=== PATIENT | female | born 1990 | race Caucasian/White ===

== ENCOUNTER 2016-09-15 12:25 | Inpatient (IN) | payer BC ==
[~2016-09-15] VITALS: Ht 157.5 cm; Wt 139.2 kg
[~2016-09-15 12:25] MED LIST: LABE100T16 PO; MTR600X PO; OXYC5TAB PO; PRENTAB26 PO; SERT-234 PO
[2016-09-15] MEDS ORDERED: SODIUM CHLORIDE 0.9% 1000ML 1,000 ML IV STA (12:44)
--- NOTE | 2016-09-15 13:09 | DIAGNOSTIC IMAGING REPORT ---
CHEST ONE VIEW PORTABLE CLINICAL HISTORY: Sepsis COMPARISON STUDY: 05/02/2013 FINDINGS: The cardiac and mediastinal contours are normal. There is no evidence of focal pulmonary consolidation. There is no evidence of failure. No pleural effusions are visualized.[ IMPRESSION: No active disease in the chest. Electronically signed by: Francisco Navarrete M.D. 09/15/2016 1:08 PM Dictated Date/Time: 09/15/2016 1:07 PM
[2016-09-15] MEDS ORDERED: NORE1TAB50 PO (13:27)
[2016-09-15 13:45] LABS: BASO % 0.2 %; BASO ABS # 0.03 K/uL (0-0.2); COMPLETE YES; EOS % 2.2 %; HEMATOCRIT 39.9 % (37-47); IG% 0.4 %; LYMPH % 8.2 %; LYMPH ABS # 1.49 K/uL (1.2-3.4); MEAN CORPUSCULAR HEMOGLOBIN 28.2 pg (25-34); MEAN CORPUSCULAR HGB CONC 32.8 g/dl (32-36); MEAN PLATELET VOLUME 10.8 fL (7.4-10.4); MONO % 6.6 %; NEUT % 82.4 %; PLATELET COUNT 211 K/uL (130-400); RED BLOOD COUNT 4.64 M/uL (4.2-5.4); WHITE BLOOD COUNT 18.14 K/uL (4.8-10.8)
[2016-09-15 14:01] LABS: PARTIAL THROMBOPLASTIN RATIO 1.2
[2016-09-15 14:06] LABS: BUN/CREATININE RATIO 15.8 (10-20); CALCIUM 8.7 mg/dl (8.5-10.1); CREATININE 0.58 mg/dl (0.60-1.20); POTASSIUM 3.9 mmol/L (3.5-5.1)
[2016-09-15 14:08] LABS: PREG INTERNAL NEGATIVE QC NEG CLEAR BACKGROUND; PREG INTERNAL POSITIVE QC POS CONTROL LINE
[2016-09-15] MEDS ORDERED: OPTIRAY 320 IV PRN (14:30)
--- NOTE | 2016-09-15 15:03 | DIAGNOSTIC IMAGING REPORT ---
CHEST CTA for PULMONARY ARTERIES CT DOSE: 717.09 mGy.cm HISTORY: Chest pain dyspnea TECHNIQUE: Multiaxial CT images of the chest were performed following the intravenous administration of contrast to evaluate the pulmonary arteries. Maximal intensity projection images were also obtained. COMPARISON STUDY: None. FINDINGS: There is a normal caliber thoracic aorta with no evidence for dissection. There is no evidence for pulmonary embolus. No pleural effusions. No pneumothorax. The liver and spleen are unremarkable. No mediastinal or hilar lymphadenopathy. The central airways are patent. The lungs are clear. IMPRESSION: No evidence for pulmonary embolus. Lungs are clear. Electronically signed by: Sterling Lin M.D. 09/15/2016 3:02 PM Dictated Date/Time: 09/15/2016 2:55 PM
[2016-09-15] MEDS ORDERED: ALBUT/IPRATROP 3MG/0.5MG NEB 3 ML VIAL INH STA (15:12)
[2016-09-15] MEDS ORDERED: ACETAMINOPHEN 325 MG TAB PO STA (15:12)
[2016-09-15] MEDS ORDERED: SODIUM CHLORIDE 0.9% 1000ML 1,000 ML IV SCH (16:10)
[2016-09-15] MEDS ORDERED: ACETAMINOPHEN 325 MG TAB PO PRN (16:15)
[2016-09-15] MEDS ORDERED: POLYETHYLENE (MIRALAX) 17 GM PACK PO PRN (16:15)
[2016-09-15] MEDS ORDERED: MoRPHine SULFATE 2 MG/ML CARP IV PRN (16:15)
[2016-09-15] MEDS ORDERED: ONDANSETRON INJ 2 MG/ML 2 ML VIAL IV PRN (16:15)
[2016-09-15 16:30] VITALS: BP 136/83; PULSE 116; TEMP 37.6; O2SAT 92; Ht 157.5 cm; Wt 139.2 kg
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
[2016-09-15] MEDS: LEVOFLOXACIN / D5W 750 MG in PREMIXED IN D5W 150 ML IV SCH (18:31)
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
[2016-09-15 19:17] VITALS: BP 145/84; PULSE 113; TEMP 36.9; O2SAT 94
[2016-09-15 20:05] VITALS: PULSE 110; O2SAT 94
[2016-09-15] MEDS: ALBUTEROL 0.5% NEB SOLN 2.5 MG/0.5 ML VIAL INH PRN (20:05)
[2016-09-15] MEDS: SERTRALINE HCL 50 MG TAB PO SCH (20:06)
[2016-09-15] MEDS: IBUPROFEN 600 MG TAB PO PRN (20:29)
[2016-09-15] MEDS ORDERED: GUAIFENESIN 600 MG TABCR PO SCH (21:00)
[2016-09-15] MEDS: NORETHINDRONE PO SCH (21:24)
[2016-09-15] MEDS ORDERED: SODIUM CHLORIDE 0.65% NA SOLN 45 ML (OCEAN) PRN (21:30)
[2016-09-15] MEDS ORDERED: NURSING VERBAL MED ORDER ONE (21:30)
[2016-09-16] VITALS (13 sets, daily range): BP systolic 133–167; BP diastolic 71–106; PULSE 82–104; TEMP 36.5–37.1; O2SAT 92–97
[2016-09-16] MEDS: ALBUTEROL 0.5% NEB SOLN 2.5 MG/0.5 ML VIAL INH PRN ×3 (05:08→15:31)
[2016-09-16 05:49] LABS: HEMATOCRIT 38.7 % (37-47); MEAN CELL VOLUME 86.8 fL (80-100); MEAN CORPUSCULAR HEMOGLOBIN 28.3 pg (25-34); MEAN CORPUSCULAR HGB CONC 32.6 g/dl (32-36); MEAN PLATELET VOLUME 11.1 fL (7.4-10.4); PLATELET COUNT 175 K/uL (130-400); RED BLOOD COUNT 4.46 M/uL (4.2-5.4); WHITE BLOOD COUNT 11.04 K/uL (4.8-10.8)
[2016-09-16 06:22] LABS: BLOOD UREA NITROGEN 9 mg/dl (7-18); BUN/CREATININE RATIO 18.7 (10-20); CALCIUM 8.4 mg/dl (8.5-10.1); CARBON DIOXIDE 27 mmol/L (21-32); CHLORIDE 110 mmol/L (98-107); GLUCOSE 95 mg/dl (70-99); MAGNESIUM 2.2 mg/dl (1.8-2.4); POTASSIUM 3.7 mmol/L (3.5-5.1); SODIUM 142 mmol/L (136-145)
[2016-09-16] MEDS: GUAIFENESIN/CODEINE 200MG/20MG 10ML UDC PO PRN ×3 (08:19→21:17)
[2016-09-16] MEDS ORDERED: METHYLPREDNISOLONE IV 40 MG in SYRINGE 0 ML IV ONE (11:30)
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
[2016-09-16] MEDS: IBUPROFEN 600 MG TAB PO PRN (14:11)
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
[2016-09-16] MEDS: LEVOFLOXACIN / D5W 750 MG in PREMIXED IN D5W 150 ML IV SCH (18:26)
[2016-09-16] MEDS: METHYLPREDNISOLONE IV 40 MG in SYRINGE 0 ML IV SCH (20:19)
[2016-09-16] MEDS: NORETHINDRONE PO SCH (20:19)
[2016-09-16] MEDS: SERTRALINE HCL 50 MG TAB PO SCH (20:20)
[2016-09-17] VITALS (7 sets, daily range): BP systolic 107–147; BP diastolic 65–84; PULSE 88–105; TEMP 36.8–37; O2SAT 92–97
[2016-09-17] MEDS: ALBUTEROL 0.5% NEB SOLN 2.5 MG/0.5 ML VIAL INH PRN ×3 (02:33→13:08)
[2016-09-17] MEDS: IBUPROFEN 600 MG TAB PO PRN (02:37)
[2016-09-17] MEDS: METHYLPREDNISOLONE IV 40 MG in SYRINGE 0 ML IV SCH (03:55)
[2016-09-17 05:14] LABS: URCREATININE 134.8 MG/DL (>/= 20)
[2016-09-17 05:39] LABS: HEMATOCRIT 39.5 % (37-47); MEAN CELL VOLUME 85.7 fL (80-100); MEAN CORPUSCULAR HGB CONC 32.7 g/dl (32-36); MEAN PLATELET VOLUME 10.5 fL (7.4-10.4); PLATELET COUNT 228 K/uL (130-400); RED BLOOD COUNT 4.61 M/uL (4.2-5.4); WHITE BLOOD COUNT 10.94 K/uL (4.8-10.8)
[2016-09-17 06:06] LABS: BUN/CREATININE RATIO 15.6 (10-20); CALCIUM 8.6 mg/dl (8.5-10.1); CREATININE 0.59 mg/dl (0.60-1.20); MAGNESIUM 2.3 mg/dl (1.8-2.4); PHOSPHORUS 1.8 mg/dl (2.5-4.9); POTASSIUM 4.1 mmol/L (3.5-5.1)
[2016-09-17] MEDS ORDERED: SODIUM PHOSPHATE 3 MMOL/1 ML INFUSION IV STA (08:12)
[2016-09-17] MEDS ORDERED: SODIUM PHOSPHATE INJ 30 MMOL in SODIUM CHLORIDE 0.9% 500ML 500 ML IV ONE (08:30)
--- NOTE | 2016-09-17 11:22 | Consultant Recommendations ---
Hotel Front Desk Agent Recommendations Date of Service September 17, 2016. Hotel Front Desk Agent Recommendations Prednisone starting at 60 mg daily and then tapering by 5 mg every 2 days. Followup scheduled in the office on 10-09-16 at 3:00 in the [facility].
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
[2016-09-17] MEDS ORDERED: NURSING VERBAL MED ORDER ONE (12:45)
[2016-09-17] MEDS ORDERED: LEVOFLOXACIN 750 MG TAB PO ONE (13:00)
[2016-09-17] MEDS ORDERED: LVQ750 PO (15:25)
[2016-09-17] MEDS ORDERED: PRD20 PO ×2 (15:25→15:33)
[2016-09-17] MEDS ORDERED: PRVIN525 INH (15:25)
[2016-09-17] MEDS ORDERED: LCTX PO (15:25)
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
[2016-09-18 10:53] LABS: LEGIONELLA ANTIGEN NOT DETECTED (NOT DETECTED)
[2016-09-18] MEDS ORDERED: LEVOFLOXACIN 750 MG TAB PO SCH (11:00)
== END 2016-09-17 17:06 | disposition home or self-care (01) | DRG 206 ==
LOC: ENRESERVDT → ENRESERVTM → EDBD 12:25 → C.EDC 12:25 → C.2T 15:50
PROVIDERS: ADMIT Hospitalist; ATTEND Internal Medicine
DX: J70.5 Respiratory conditions due to smoke inhalation (principal); R09.02 Hypoxemia; F32.9 Major depressive disorder, single episode, unspecified; Z83.3 Family history of diabetes mellitus; D72.829 Elevated white blood cell count, unspecified; E66.01 Morbid (severe) obesity due to excess calories; R06.2 Wheezing; E83.39 Other disorders of phosphorus metabolism; T38.0X5A Adverse effect of glucocorticoids and synthetic analogues, initial encounter

== ENCOUNTER → 2017-01-30 | Outpatient (CLI) | payer BC ==
[~2017-01-30] MED LIST changes: -LABE100T16 PO; +LCTX PO; +LVQ750 PO; +NORE1TAB50 PO; -OXYC5TAB PO; +PRD20 PO; -PRENTAB26 PO; +PRVIN525 INH
== END | disposition home or self-care (01) ==
LOC: C.LABBFT 12:02
PROVIDERS: ATTEND Nurse Practitioner
DX: R63.5 Abnormal weight gain (principal)